=== PATIENT | male | born 1975 | race Caucasian/White ===

== ENCOUNTER 2022-01-27 23:26 | Emergency (ER) | payer SELFPAY ==
[~2022-01-27] VITALS: Ht 180.3 cm; Wt 96.2 kg
[2022-01-27 23:26] VITALS: BP 140/72
--- NOTE | 2022-01-27 23:26 | NUR ---
Dr. Prater examining patient.
--- NOTE | 2022-01-27 23:26 | NUR ---
PT BIB [facility], PREBOOK. TAKEN TO CHAIR
[2022-01-27 23:43] VITALS: BP 140/72
--- NOTE | 2022-01-27 23:45 | NUR ---
PATIENT BIB [facility] POLICE DEPT. PATIENT EXAMINED BY DR. REESE. PATIENT MEDICALLY CLEARED AND RELEASED IN CUSTODY IN STABLE CONDITION. ORIGINAL PRE-BOOK FORM GIVEN TO OFFICER SUKHWINDER #[id number] Patient discharged with v/s stable. Written and verbal after care instructions given and explained. Patient verbalized understanding. Police with in custody. All questions addressed prior to discharge. Advised to follow up with PMD.
== END 2022-01-27 23:45 ==
LOC: MED 23:26
DX: S60.512A Abrasion of left hand, initial encounter (principal); S60.511A Abrasion of right hand, initial encounter; Z72.89 Other problems related to lifestyle; V49.88XA Car occupant (driver) (passenger) injured in other specified transport accidents, initial encounter; Y93.89 Activity, other specified; Y92.89 Other specified places as the place of occurrence of the external cause; Y99.8 Other external cause status
CPT/HCPCS: 99283